=== PATIENT | female | born 1990 | race Caucasian/White ===

== ENCOUNTER 2018-02-14 16:35 | Emergency (ER) | payer OTHER ==
[~2018-02-14] VITALS: Ht 160 cm; Wt 67.1 kg
== END 2018-02-14 21:08 | disposition home or self-care (01) ==
LOC: ER 16:35
DX: N93.8 Other specified abnormal uterine and vaginal bleeding (principal); N83.02 Follicular cyst of left ovary; N83.01 Follicular cyst of right ovary

== ENCOUNTER 2018-10-31 11:37 | Outpatient (CLI) | payer OTHER | END 2018-10-31 11:47 | disposition home or self-care (01) | LOC: LAB 11:37 | DX: J11.1 Influenza due to unidentified influenza virus with other respiratory manifestations (principal) ==